=== PATIENT | female | born 2005 | race Caucasian/White ===

== ENCOUNTER 2024-05-15 19:26 | Outpatient (REF) | payer OTHER, SELFPAY ==
--- NOTE | ~2024-05-15 | MR_ITS ---
CLINICAL HISTORY: PAIN IN LT FINGER FOCUS ON 4TH PIP W PAIN Added Ax, Sag, and Cor FS 4th finger onl y MR 4th digit of the left hand without gadolinium Comparison: No x-rays available for comparison at this time. Findings: Mild signal at base of 1st metacarpal likely related to physis and artifact. Stress phenomenon and/or nondisplaced fracture considered less likely. No displaced fracture of the 4th digit. Mild STIR signal of the contusion or nondisplaced fracture involves the dorsal aspect of the proximal epiphysis region of the middle phalanx of the 4th digit. Additional osseous STIR signal of the 4th digit related to partially open physis (growth plates). Mild signal of the extensor tendon of the 4th digit of the metacarpal phalangeal joint level is secondary to adjacent vessel pulsation artifact (image 25 of series 2). No tendon tear or tendon rupture. [id number] effusion of the proximal interphalangeal joint of the 4th digit. No bony destructive changes or loss of the T1 signal to support septic arthropathy. Additional fluid signal is noted including deep to the flexor tendon of the 4th digit, particularly of the proximal phalanx. Fraying of radial side retinaculum fibers proximal interphalangeal joint of the 4th digit (imaged 15 of series 11). Imaged carpal tunnels within normal limits for technique. Multifocal vessel signal noted. No soft tissue mass or defined neoplasm in this noncontrast study. Motion artifacts noted, including about the imaged wrists. IMPRESSION: 1. Small nondisplaced fracture of the base of the middle phalanx of the 4th digit. No displaced fracture. 2. Small effusion of the proximal interphalangeal joint of the 4th digit, with fraying of the radial-retinaculum. No imaging findings of infection or inflammatory arthropathy. 3. Additional fluid includes tenosynovitis of the 4th digit flexor tendon. No flexor or extensor tendon rupture. 4. Signal of the base of the 1st metacarpal is likely artifactual. Stress phenomenon is also considered. This document has been electronically signed by: Junior Molina MD on 05/15/2024 21:13:24
== END 2024-05-15 19:27 | disposition home or self-care (01) ==
LOC: HO.MRI 19:26
PROVIDERS: Visit Provider Student in an Organized Health Care Education/Training Program
DX: M79.645 Pain in left finger(s) (principal)
CPT/HCPCS: 73218

== ENCOUNTER → 2024-05-15 19:40 | Outpatient (BNV) | payer OTHER, SELFPAY | PROVIDERS: Visit Provider Radiology Neuroradiology | DX: S62.654A Nondisplaced fracture of middle phalanx of right ring finger, initial encounter for closed fracture (principal); M65.841 Other synovitis and tenosynovitis, right hand | CPT/HCPCS: 73218 ==